=== PATIENT | female | born 1960 | race American Indian/Alaskan Native ===

== ENCOUNTER 2020-07-23 12:19 | Outpatient (CLI) | payer MEDICARE ==
--- NOTE | 2020-07-23 13:20 | Mammography Report ---
DIGITAL SCREENING MAMMOGRAM WITH CAD, 07/23/2020 CLINICAL INFORMATION / INDICATION: Routine screening mammography. TECHNIQUE: Digital bilateral 2D mammography was obtained in the craniocaudal and mediolateral obliqu e projections. This examination was interpreted with the benefit of Computer-Aided Detection analysis . COMPARISON: 05/04/2019, 05/05/2018 FINDINGS: Breast Density: There are scattered areas of fibroglandular density. No dominant mass, suspicious calcifications, or architectural distortion in the right breast. There is a new indeterminate nodular density located in the 9:00 position posterior depth of the left breast measuring 0.5 x 0.5 cm. No other significant abnormality of the left breast. Bilateral benign-appearing calcifications are unchanged. IMPRESSION: Indeterminate left breast nodular density as above. A limited left breast ultrasound and possible diagnostic left mammogram with spot compression views is recommended for further evaluation. Follow up recommendation: Ultrasound BI-RADS Category 0: Incomplete. Needs additional imaging evaluation and/or prior mammograms for grupo rison. A "normal" or negative report should not discourage follow up or biopsy of a clinically significant f inding. A written summary of these findings will be mailed to the patient. The patient will be entered into a mammography reporting system which will generate a reminder letter for the patient's next appointmen t at the appropriate interval. The [employer] recommends yearly mammograms starting at age 40 and continuing as l peter as a woman is in good health. Breast MRI is recommended for women with an approximate 20-25% or greater lifetime risk of breast cancer, including women with a strong family history of breast or ova khai cancer or who have been treated for Hodgkin's disease. Signer Name: Myles Chen MD Signed: 07/23/2020 1:16 PM Workstation Name: [id number]
== END 2020-07-23 12:20 | disposition home or self-care (01) ==
LOC: SPVWC 12:19
PROVIDERS: ATTEND Surgery
DX: Z12.31 Encounter for screening mammogram for malignant neoplasm of breast (principal); N64.89 Other specified disorders of breast
CPT/HCPCS: 77067

== ENCOUNTER 2020-07-26 08:23 | Outpatient (CLI) | payer MEDICARE ==
--- NOTE | 2020-07-26 09:19 | Ultrasound Report ---
ULTRASOUND BREAST LEFT LIMITED, 07/26/2020 CLINICAL INFORMATION / INDICATION: ABN MAMMO. Patient presents as a callback from screening mammogram for further evaluation of a nodular density in the left breast. TECHNIQUE: Targeted ultrasound evaluation was performed of the area of interest. COMPARISON: Prior mammogram 07/23/2020 FINDINGS: Corresponding with the nodular density seen on recent mammogram, there is a benign mildly complicated cyst versus intramammary lymph node in the left breast 9:00 position located 4 cm from the nipple me asuring up to 5 mm. No internal vascularity is demonstrated. IMPRESSION: 1. A benign mildly complicated cyst versus intramammary lymph node accounts for the mammographic find ing. No suspicious sonographic abnormality identified. Follow up recommendation: Routine yearly BI-RADS Category 2: Benign. A normal or "negative" report should not preclude biopsy or follow-up of a clinically suspicious find ing. Signer Name: Temi Mello MD Signed: 07/26/2020 9:15 AM Workstation Name: [id number]
== END 2020-07-26 08:24 | disposition home or self-care (01) ==
LOC: SPVWC 08:23
PROVIDERS: ATTEND Surgery
DX: R92.8 Other abnormal and inconclusive findings on diagnostic imaging of breast (principal)